=== PATIENT | female | born 1965 | race Caucasian/White ===

== ENCOUNTER 2020-09-01 00:03 | Emergency (ER) | payer BC ==
--- NOTE | 2020-09-01 00:36 | EDM.PDOC ---
ED HPI GENERAL MEDICAL PROBLEM - General Chief Complaint: Upper Extremity Injury/Pain Stated Complaint: fx to R fore arm Time Seen by Provider: 09/01/20 00:24 Source of Information: Reports: Patient History Limitations: Reports: No Limitations - History of Present Illness INITIAL COMMENTS - FREE TEXT/NARRATIVE: Arrives to ER with family for fall right wrist injury. Patient was standing on a chair reaching for snack up in the cupboard. She lost her balance fell off the chair landed with a FOOSH injury injured her right wrist with deformity pain and swelling to her distal radius. Patient's pain is sharp constant nonradiating and pain is 9 on a 10 scale. Patient last ate at 1230 this afternoon last drink prior to arrival. Patient has been heavily drinking alcohol tonight as well. No previous injury to that arm. She is right-hand dominant. No other injuries. She did bump her head no loss conscious no blood thinners no signs of facial trauma. The fall and hitting her head was secondary after right arm took initial impact. Right Forearm/Wrist Pain Score (Numeric/FACES): 9 - Related Data Allergies Allergy/AdvReac Type Severity Reaction Status Date / Time No Known Drug Allergies Allergy Other Verified 09/01/20 00:05 Home Meds: Home Meds Albuterol Sulfate [Albuterol Sulfate HFA] 1 puff INH Q4H PRN 09/01/20 [History] Aspirin [Aspirin EC] 81 mg PO DAILY 09/01/20 [History] Fish Oil/[place]-3 Fatty Acids [Fish Oil 1,000 MG] 1 cap PO DAILY 09/01/20 [Hist ory] Mometasone/Formoterol [Dulera 200-5 MCG] 1 puff INH BID 09/01/20 [History] Multivitamin [Multi-Vitamin Daily] 1 tab PO DAILY 09/01/20 [History] Social & Family History - Tobacco Use Tobacco Use Status *Q: Current Every Day Tobacco User Years of Tobacco use: 30 Packs/Tins Daily: 0.7 - Caffeine Use Caffeine Use: Reports: Soda - Alcohol Use Days Per Week of Alcohol Use: 7 Number of Drinks Per Day: 6 Total Drinks Per Week: 42 - Recreational Drug Use Recreational Drug Use: No Review of Systems - Review of Systems Review Of Systems: Comprehensive ROS is negative, except as noted in HPI. Musculoskeletal: Reports: Arm Pain (right wrist pain/swelling deformity), Other Neurological: Reports: No Symptoms. Denies: Syncope ED EXAM, GENERAL - Physical Exam Exam: See Below Exam Limited By: No Limitations General Appearance: Alert, WD/WN, No Apparent Distress Eye Exam: Bilateral Eye: EOMI, PERRL Ears: Normal TMs Nose: Nasal Deformity Throat/Mouth: Normal Inspection, Normal Oropharynx Head: Atraumatic, Normocephalic Neck: Normal Inspection, Supple, Non-Tender, Full Range of Motion Respiratory/Chest: No Respiratory Distress, Lungs Clear Cardiovascular: Normal Peripheral Pulses, Regular Rate, Rhythm Peripheral Pulses: 2+: Radial (L), Radial (R) GI/Abdominal: Soft, Non-Tender Back Exam: Normal Inspection, Full Range of Motion Extremities: Other (pain across her distal radius and ulnar with swelling and slight deformity, no break in the skin, DNV intact all 5 digits on right hand, no proxmial forearm pain, normal elbow and shoulder on the right ) Skin Exam: Warm, Dry, Intact ED TRAUMA EXTREMITY PROCEDURES - Splinting Right Upper Extremity Pre-Procedure NV Status: Normal Post-Procedure NV Status: Normal Splint Material: Other (orthoglass) Splint Design: Volar Applied & Form Fitted By: Provider Provider Post-Splint Application NV Check: NV Status Normal, Good Position Complications: No Course - Vital Signs Last Recorded V/S: Last Vital Signs Temp 97.4 F 09/01/20 00:19 Pulse 106 H 09/01/20 00:19 Resp 20 09/01/20 00:19 BP 150/91 H 09/01/20 00:19 Pulse Ox 96 09/01/20 00:19 - Orders/Labs/Meds Orders: Active Orders 24 hr Category Date Time Status Forearm 2V Rt [CR] Stat Exams 09/01/20 00:17 Stop Req Wrist Comp Min 3V Rt [CR] Stat Exams 09/01/20 00:16 Ordered - Re-Assessments/Exams Free Text/Narrative Re-Assessment/Exam: 09/01/20 00:31 Ice applied elevated patient denies any same thing for pain, as she has been drinking alcohol tonight. Last ate at 1230. Last drink just prior to arrival. I consult the [facility] call hand surgery. They are waiting for images going to review and call me back. 09/01/20 01:01 I did speak with on-call hand surgery Dr. Stewart at [facility] he reviewed the images patient needs a close reduction and splinting , patient referred to [facility] emergency room I called [facility] gave report to physician Dr. Turner he has accepted care. I did apply a Ortho-Glass splint to stabilize the fracture and patient was placed in arm sling. The patient denies any warning for pain. Patient left n.p.o. Patient left with family to go by to [facility]. Departure - Departure Time of Disposition: 00:37 Disposition: DC/Tfer to Acute Hospital 02 Condition: Good Clinical Impression: Distal radial fracture Qualifiers: Encounter type: initial encounter Fracture type: closed Fracture morphology: other fracture Laterality: right Qualified Code(s): S52.591A - Other fractures of lower end of right radius, initial encounter for closed fracture Ulna styloid fracture, closed Qualifiers: Encounter type: initial encounter Fracture alignment: displaced Laterality: right Qualified Code(s): S52.611A - Displaced fracture of right ulna styloid process, initial encounter for closed fracture - Discharge Information *PRESCRIPTION DRUG MONITORING PROGRAM REVIEWED*: No *COPY OF PRESCRIPTION DRUG MONITORING REPORT IN PATIENT LYUBOV: No Instructions: Colles Fracture Referrals: PCP,Unobtain [Primary Care Provider] - Forms: ED Department Discharge Additional Instructions: Do not eat or drink tonight. Please go right to [facility] emergency room to have your wrist taken care of. And needs to be closed reduction with a new splint placed on it. The [facility] emergency room has been notified and are expecting your arrival. Sepsis Event Note (ED) - Evaluation Sepsis Screening Result: No Definite Risk - Focused Exam Vital Signs: Vital Signs Temp Pulse Resp BP Pulse Ox 09/01/20 00:19 97.4 F 106 H 20 150/91 H 96 - My Orders Last 24 Hours: My Active Orders 09/01/20 00:16 Wrist Comp Min 3V Rt [CR] Stat 09/01/20 00:17 Forearm 2V Rt [CR] Stat - Assessment/Plan Last 24 Hours: My Active Orders 09/01/20 00:16 Wrist Comp Min 3V Rt [CR] Stat 09/01/20 00:17 Forearm 2V Rt [CR] Stat
[2020-09-01] MEDS: Acetaminophen 325 MG Tab PO ONE (01:13)
== END 2020-09-01 01:25 ==
LOC: KA.ED 00:03
DX: S52.611A Displaced fracture of right ulna styloid process, initial encounter for closed fracture (principal); S52.591A Other fractures of lower end of right radius, initial encounter for closed fracture; Z72.0 Tobacco use; Z79.82 Long term (current) use of aspirin; Z79.899 Other long term (current) drug therapy; W07.XXXA Fall from chair, initial encounter
CPT/HCPCS: 29125; 73110-RT; 99283; 99284-25; A9270-GY